=== PATIENT | female | born 1985 | race Caucasian/White ===

== ENCOUNTER 2017-02-09 19:46 | Emergency (ER) | payer OTHER ==
[2017-07-05] MEDS ORDERED: IBUPROFEN400 MG PO (11:05)
[2017-07-05] MEDS ORDERED: NORCO 7.5-3251 EACH PO (15:50)
== END 2017-02-09 21:45 | disposition home or self-care (01) ==
LOC: ER1 19:46
DX: K05.219 Aggressive periodontitis, localized, unspecified severity (principal); Z98.51 Tubal ligation status
CPT/HCPCS: 99282